=== PATIENT | female | born 1990 | race Caucasian/White ===

== ENCOUNTER 2025-01-17 12:51 | Outpatient (CLI) | payer OTHER, SELFPAY ==
--- OUTSIDE RECORDS SUMMARY | 2025-01-17 12:54 | XMS_ITS | Clinical Summary ---
Author Organization [facility] Address [address] [place] [address] Phone Care Team Providers Care Virtualization Engineer Name Role Phone Unavailable Primary Care Provider Unavailabl e Allergies Active Allergy Reactions Criticality Noted Date Comments Sulfa Antibiotics Rash 10/20/2015 Medications LORazepam (ATIVAN) 0.5 MG Tablet Take 0.5 mg by mouth every 6 hours as needed for Anxiety. Active Levonorgestrel-Eth inyl Estrad (ASHLI, Kevin,) 0.15-30 MG-MCG TabletIndications: Encounter for surveillance of contraceptive pills Take 1 Tab by mouth daily. 90 Tab 4 6 Active citalopram (CELEXA) 10 MG TabletIndications: Anxiety Take 1 Tab by mouth daily. 90 Tab 3 6 Active Active Problems Problem Noted Date Diagnosed Date Anxiety Intertrigo Contraceptive management Orthostatic hypotension Irregular menses Allergic rhinitis Family History Medical History Relation Name Comments Hypertension Father Breast Cancer Maternal Grandmother Relation Name Status Comments Father Maternal Grandmother Social History Tobacco Use Types Packs/Day Years Used Date Smoking Tobacco: Never Alcohol Use Standard Drinks/Week Comments Not Asked 0 (1 standard drink = 0.6 oz pur e alcohol) Sexually Active Control Partners Comments Yes Male Comments Unknown Sex and Gender Information Value Date Recorded Sex Assigned at Not on file Legal Sex Female 3:23 AM CDT Gender Identity Not on file Sexual Orientation Not on file Last Filed Vital Signs Vital Sign Reading Time Taken Comments Blood Pressure 102/56 10/20/2015 8:22 AM CDT Pulse 87 10/20/2015 8:22 AM CDT Temperature - - Respiratory Rate - - Oxygen Saturation - - Inhaled Oxygen Concentration - - Weight 56.5 kg (124 lb 9.6 oz) 10/20/2015 8:22 A M CDT Height 171.5 cm (5' 7.5) 10/20/2015 8:22 AM CDT Body Mass Index 19.23 10/20/2015 8:22 AM CDT Plan of Treatment Health Maintenance Due Date Last Done Comments Hepatitis C Virus (HCV) Screening 1992 TdaP Immunization 1992 Hepatitis B Immunization (1 of 3 - 19+ 3-dose series) 2011 Pap Smear 2013 Cervical Cancer Screening (CCS) 2022 HPV/Cotest 2022 Influenza Immunization (#1) 2024 SARS-COV-2 Immunization ( season) 2024 Respiratory Syncytial Virus (RSV) Immunization (Adult) (1 - 1-dose 75+ series) 2067 Meningococcal Immunization (ACWY) Aged Out No longer eligible based on patient's age to complete this topic Pneumococcal Immunization Combined Aged Out No longer eligible based on patient's age to complete this topic Rotavirus Immunization Aged Out No lo nger eligible based on patient's age to complete this topic Insurance [employer]
[2025-01-17 13:38] LABS: Magnesium 1.8 mg/dL (1.6-2.3)
[2025-01-17 13:46] LABS: Iron 92 ug/dL (37-170)
[2025-01-17 14:04] LABS: Percent Iron Saturation 25 % (20-50)
[2025-01-17 14:47] LABS: Folic Acid > 20.0 ng/mL (2.76->20)
[2025-01-17 15:00] LABS: Vitamin D 25 Hydroxy 26.8 ng/mL
== END 2025-01-17 12:52 | disposition home or self-care (01) ==
PROVIDERS: PCP Nurse Practitioner Family; Visit Provider Nurse Practitioner Family
DX: E61.1 Iron deficiency (principal); Z13.29 Encounter for screening for other suspected endocrine disorder; R79.89 Other specified abnormal findings of blood chemistry; E55.9 Vitamin D deficiency, unspecified
CPT/HCPCS: 36415; 82306; 82607; 82728; 82746; 83540; 83550; 83735; 84443

== ENCOUNTER 2025-02-24 09:29 | Outpatient (CLI) | payer OTHER, SELFPAY ==
--- OUTSIDE RECORDS SUMMARY | 2025-02-24 09:34 | XMS_ITS | Clinical Summary ---
Author Organization [facility] Address [address] [place] [address] Phone Care Team Providers Care Vice President Business & Corporate Development Name Role Phone Unavailable Primary Care Provider [...] Virus (HCV) Screening 1992 TdaP Immunization 1992 Human Papillomavirus (HPV) Immunization (1 - 3-dose series) 2007 Hepatitis B Immunization (1 of 3 - 19+ 3-dose series) 2011 Pap Smear 2013 Cervical Cancer Screening (CCS) 2022 HPV/Cotest 2022 SARS-COV-2 Immunization ( - season) 2024 Influenza Immunization (#1) 2025 Respiratory Syncytial Virus (RSV) Immunization (Adult) (1 [...]
--- OUTSIDE RECORDS SUMMARY | 2025-02-24 09:34 | XMS_ITS | Clinical Summary ---
Author Organization [facility] Address [address] [place] [id number] Care Team Providers Care [id number] Consultant Name Role Phone Jarek Cordero DO Primary Care Provider [phone] Allergies Active Allergy Reactions Criticality Noted Date Comments Sulfasalazine Unknown 07/24/2019 Medications ferrous sulfate EC 324 (65 Fe) MG tablet Take 1 tablet (324 mg total) by mouth daily with breakfast. Active vitamin, low iron, ( VITAMIN WITH IRON) 27-0.8 MG tablet Take 1 tablet by mouth daily. Active citalopram 20 MG tablet Take 1 tablet (20 mg total) by mouth daily. Active busPIRone 10 MG tablet Take 1 tablet (10 mg total) by mouth 2 (two) times daily. Active docusate sodium 100 MG capsule Take 1 capsule (100 mg total) by mouth nightly. Active Blood Pressure KitIndications:Ge stational hypertension ([facility]) 1 kit by Does not apply route 2 (two) times a day. 1 kit 4 Active Active Problems Problem Noted Date Diagnosed Date ([facility]) 02/28/2024 Uterine contractions during ([facility]) 09/02/2019 39 weeks gestation of ([facility]) 2019 Family History Relation Status Comments Father Alive Mother Alive Social History Tobacco Use Types Packs/Day Years Used Date Smoking Tobacco: Never Smokeless Tobacco: Never Alcohol Use Standard Drinks/Week Comments No 0 (1 standard drink = 0.6 oz pur e alcohol) AUDIT-C Answer Date Recorded Frequency of Alcohol Consumption Never 07/24/2019 Average Number of Drinks Not on file 019 Frequency of Binge Drinking Not on file 07/07 Depression Answer Date Recor ded Last EPDS Total Score 3 03/01/2024 Last EPDS Self Harm Result Often 03/01 Comments No Sex and Gender Information Value Date Recorded Sex Assigned at Female 07/13/2021 6:05 PM CEMENTER 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 Legal Sex Female 11:13 AM CEMENTER 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 Gender Identity Female 07/13/2021 6:05 PM CEMENTER 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 Sexual Orientation Straight 07/13/2021 6: 05 PM CEMENTER 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 Last Filed Vital Signs Vital Sign Reading Time Taken Comments Blood Pressure 127/75 03/01/2024 9:28 AM CDT Pulse 100 03/01/2024 9:28 AM CDT Temperature 36.3 C (97.3 F) 03/01/2024 9:28 AM CDT Respiratory Rate 20 03/01/2024 9:30 AM CDT Oxygen Saturation 99% 03/01/2024 9:29 AM CDT Inhaled Oxygen Concentration - - Weight 70.3 kg (155 lb) 02/27/2024 9:00 PM CDT Height 170.2 cm (5' 7) 02/27/2024 9:00 PM CDT Body Mass Index 24.28 02/27/2024 9:00 PM CDT Plan of Treatment Health Maintenance Due Date Last Done Comments Cervical Cancer Screening Pap Smear (Age 30 to 64) Every 3 Years 1992 Annual Physical 1995 HPV Vaccines (3 - 3-dose series) 12/24/2007 10/01/2007, 07/26/2007, 06/02/2007 Hepatitis C 2010 Cervical Cancer Screening Pap with HPV Testing (Age 30 to 64) Every 5 Years 2022 Cervical Cancer Screening with HPV 2022 COVID-19 Vaccine ( season) 2024 04/23/2021, 04/02/2021 DTaP, Tdap and Td Vaccines (11 - Td or Tdap) 04/23/2031 04/23/2021, 06/14/2019, 11/02/2015, Additional history exists Hepatitis B Vaccines Completed 1992, 1992, 1992 Meningococcal Vaccine Completed 02/19/2010 Meningococcal B Vaccine Aged Out No l onger eligible based on patient's age to complete this topic Pneumococcal Vaccine: Pediatrics (0 to 5 Years) and At-Risk Patients (6 to 49 Years) Aged Out No longer eligible based on patient's age to complete this topic RSV Immunizations Under 20 Months Aged Out No longer eligible based on patient's age to complete this topic Insurance [employer] Advance Directives Documents on File Type Date Recorded 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
--- NOTE | 2025-02-24 11:00 | NEURO_ITS ---
Impression: # Complains of numbness of left 4th and 5th finger. 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 ? # Left ulnar neuropathy across the elbow. ? # Normal needle/EMG exam. ? # Clinical correlation recommended. Nerve Conduction Studies ?Stim Site NR Peak (ms) P-T Amp (?V) Site1 Site2 Delta-P (ms) Dist (cm) David (m/s) Left Median Anti Sensory (2-3nd Digit) Wrist ? 2.8 81.5 Wrist 2-3nd Digit 2.8 14.0 50 Wrist ? 2.8 58.3 Wrist 2-3nd Digit 2.8 14.0 50 Right Median Anti Sensory (2-3nd Digit) Wrist ? 2.7 72.4 Wrist 2-3nd Digit 2.7 14.0 52 Wrist ? 2.7 60.3 Wrist 2-3nd Digit 2.7 14.0 52 Left Radial Anti Sensory (Base 1st Digit) Wrist ? 2.1 56.4 Wrist Base 1st Digit 2.1 0.0 Right Radial Anti Sensory (Base 1st Digit) Wrist ? 2.1 31.6 Wrist Base 1st Digit 2.1 0.0 Left Ulnar Anti Sensory (5th Digit) Wrist ? 2.4 85.7 Wrist 5th Digit 2.4 14.0 58 Right Ulnar Anti Sensory (5th Digit) Wrist ? 2.3 75.8 Wrist 5th Digit 2.3 14.0 61 ?Stim Site NR Onset (ms) O-P Amp (mV) Site1 Site2 Delta-0 (ms) Dist (cm) David (m/s) Left Median Motor (Abd Poll Brev) Wrist ? 2.7 8.3 Elbow Wrist 4.6 27.0 59 Elbow ? 7.3 11.1 Right Median Motor (Abd Poll Brev) Wrist ? 2.8 6.1 Elbow Wrist 4.9 29.0 59 Elbow ? 7.7 11.5 Left Ulnar Motor (Abd Dig Minimi) Wrist ? 2.4 11.7 A Elbow Wrist 5.5 28.0 51 A Elbow ? 7.9 10.8 B Elbow Wrist 3.9 22.0 56 B Elbow ? 6.3 9.4 Right Ulnar Motor (Abd Dig Minimi) Wrist ? 2.0 11.8 A Elbow Wrist 5.0 29.0 58 A Elbow ? 7.0 10.9 B Elbow Wrist 3.7 21.0 57 B Elbow ? 5.7 9.6 Electromyography ?Side Muscle Nerve Root Ins Act Fibs Amp Dur Recrt Comment Right 1stDorInt Ulnar C8-T1 Nml Nml Nml Nml Nml Right Ext Indicis Radial (Post Int) C7-8 Nml Nml Nml Nml Nml Right Ext Digitorum Radial (Post Int) C7-8 Nml Nml Nml Nml Nml Right BrachioRad Radial C5-6 Nml Nml Nml Nml Nml Right PronatorTeres Median C6-7 Nml Nml Nml Nml Nml Right Abd Poll Brev Median C8-T1 Nml Nml Nml Nml Nml Right ABD Dig Min Ulnar C8-T1 Nml Nml Nml Nml Nml Right FlexPolLong Median (Ant Int) C7-8 Nml Nml Nml Nml Nml Right Abd Poll Long Radial (Post Int) C7-8 Nml Nml Nml Nml Nml Left 1stDorInt Ulnar C8-T1 Nml Nml Nml Nml Nml Left Ext Indicis Radial (Post Int) C7-8 Nml Nml Nml Nml Nml Left Ext Digitorum Radial (Post Int) C7-8 Nml Nml Nml Nml Nml Left BrachioRad Radial C5-6 Nml Nml Nml Nml Nml Left PronatorTeres Median C6-7 Nml Nml Nml Nml Nml Left Abd Poll Brev Median C8-T1 Nml Nml Nml Nml Nml Left ABD Dig Min Ulnar C8-T1 Nml Nml Nml Nml Nml Left FlexPolLong Median (Ant Int) C7-8 Nml Nml Nml Nml Nml Left Abd Poll Long Radial (Post Int) C7-8 Nml Nml Nml Nml Nml
== END 2025-02-24 09:30 | disposition home or self-care (01) ==
PROVIDERS: PCP Nurse Practitioner Family; Visit Provider Nurse Practitioner Family
DX: G56.03 Carpal tunnel syndrome, bilateral upper limbs (principal); G56.22 Lesion of ulnar nerve, left upper limb
CPT/HCPCS: 95886; 95911

== ENCOUNTER 2025-04-11 13:30 | Outpatient (RCR) | payer OTHER, SELFPAY ==
--- NOTE | 2025-01-17 14:44 | OTOPEVAL1 ---
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 Pt. reports this increasing hand weakness and pain has disrupted to capacity to hold instruments while performing procedures at work, holding and opening water bottles, picking up and holding her son. 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 Pt. presents with positive Reverse Phalen's test in L hand and below average pinch strength bilaterally. Pt. reports of increasing numbness and tingling, with stabbing pain after prolonged periods of holding instruments for work and performing procedures, resulting in decreased functional strength and use of bilateral hands. Pt. will benefit from occupational therapy services including therapeutic exercises and activity, use of therapeutic modalities, and education for condition management and reduction. Plan of Care Interventions Therapeutic Exercise,Manual Therapy,Therapeutic Activities,Self-Care/Home Management,Check Out for Orthotic/Prosthetic OT Services Indicated Yes Treatment Frequency and 1x/wk for 5 weeks Duration These treatments will address the objective and functional deficits as defined above. The patient will be advanced safely and appropriately in order for the patient to progress towards his/her prior level of function. Additional exercises will be introduced and as well as a comprehensive home exercise program upon discharge, if needed, ?to ensure carryover of functional gains achieved in the clinic. This treatment plan has been reviewed and agreement upon by the patient.
--- NOTE | 2025-01-17 14:45 | OPREHPOC ---
Outpatient Therapy Plan of Care This is a Multidisciplinary Plan of Care that may contain components documented by all disciplines (PT, OT, and ST.) OT Problem 1 OT Problem #1 Knowledge Deficit OT Goal 1 Goal / Goal Update Pt. will demonstrate independence in HEP, reporting completion of assigned frequency 5/7 day s of the week Target Visit 5 OT Problem 2 OT Problem #2 Pain OT Goal 1 Goal / Goal Update Pt. will report decreased pain to < 2/10 pain 5/7 days per week Target Visit 5 OT Problem 3 OT Problem #3 Impaired Strength OT Goal 1 Goal / Goal Update Pt. will demonstrate increased hand strength as demonstrated by 2 lbs increase in pinch tests Target Visit 10
--- NOTE | 2025-01-17 15:21 | OTOPEVAL1 ---
Assessment and note entered by Isis Hernandez, OT Evaluation Information Assessment Status Evaluation Diagnosis carpal tunnel syndrome, bilateral limbs ICD-10 Condition Codes (OT) Pain in right hand M79.641,Pain in left hand M79. 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 Pt. reports this increasing hand weakness and pain has disrupted to capacity to hold instruments while performing procedures at work, holding and opening water bottles, picking up and holding her son. 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 Pt. presents with positive Reverse Phalen's test in L hand and below average pinch strength bilaterally. Pt. reports of increasing numbness and tingling, with stabbing pain after prolonged periods of holding instruments for work and performing procedures, resulting in decreased functional strength and use of bilateral hands. Pt. will benefit from occupational therapy services including therapeutic exercises and activity, use of therapeutic modalities, and education for condition management and reduction. Plan of Care Interventions Therapeutic Exercise,Manual Therapy,Therapeutic Activities,Self-Care/Home Management,Check Out for Orthotic/Prosthetic OT Services Indicated Yes Treatment Frequency and 1x/wk for 5 weeks Duration These treatments will address the objective and functional deficits as defined above. The patient will be advanced safely and appropriately in order for the patient to progress towards his/her prior level of function. Additional exercises will be introduced and as well as a comprehensive home exercise program upon discharge, if needed, ?to ensure carryover of functional gains achieved in the clinic. This treatment plan has been reviewed and agreement upon by the patient.
--- NOTE | 2025-04-04 16:10 | OTOPPROG ---
Assessment and note entered by Isis Hernandez, OT Evaluation Information Assessment Status Progress Diagnosis carpal tunnel syndrome, bilateral limbs ICD-10 Condition Codes (OT) Pain in right hand M79.641,Pain in left hand M79. 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 Pt. reports increased pain with work as dentist, as she is required to frequent writs movement with applied force with tools which this week has been a 4/10 pain, in previous weeks has been alleviated. Pt. reports she no longer caries her toddler son as he is ambulatory. No pain, numbness of tingling in L wrist. Pt. has been attempting to rest use of wrist this week since return of pain in R wrist and hand, stating she cannot peanut picker her waterbottle and has to take increased time to do tasks to avoid pain. 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 Pt. 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 Pt. reports of reduction of numbness and tingling, no longer experiencing stabbing pain after prolonged periods of holding instruments for work and performing procedures, but increased pain with certain tasks and repetitive movement of wrist and hands. Pt. will benefit from continued occupational therapy services including therapeutic exercises and activity, use of therapeutic modalities, and education for condition management and reduction of symptoms. Plan of Care Interventions Therapeutic Exercise,Manual Therapy,Therapeutic Activities,Self-Care/Home Management,Check Out for Orthotic/Prosthetic OT Services Indicated Yes Treatment Frequency and 1x/wk for 5 weeks, pt. unable to attend more due Duration to work schedule These treatments will address the objective and functional deficits as defined above. The patient will be advanced safely and appropriately in order for the patient to progress towards his/her prior level of function. Additional exercises will be introduced and as well as a comprehensive home exercise program upon discharge, if needed, ?to ensure carryover of functional gains achieved in the clinic. This treatment plan has been reviewed and agreement upon by the patient.
--- NOTE | 2025-04-04 16:10 | OPREHPOC ---
Outpatient Therapy Plan of Care This is a Multidisciplinary Plan of Care that may contain components documented by all disciplines (PT, OT, and ST.) OT Problem 1 OT Problem #1 Knowledge Deficit OT Goal 1 Goal / Goal Update Pt. will demonstrate independence in HEP, reporting completion of assigned frequency 5/7 days of the week --Progress 04/04/25-- 1) Goal met, continue for advancing HEP Target Visit 10 Progress Met OT Problem 2 OT Problem #2 Pain OT Goal 1 Goal / Goal Update Pt. will report decreased pain to < 2/10 pain 5/7 days per week --Progress 04/04/25-- 1) Goal partially met, pt. reports overall pain reduction of <1/10 on most days of the week, but has experience exacerbation symptoms with increased activity Updated goal: Pt. will report decreased pain to < 1/10 pain 5/7 days per week without exacerbation of symptoms Target Visit 10 Progress Partially Met OT Problem 3 OT Problem #3 Impaired Strength OT Goal 1 Goal / Goal Update Pt. will demonstrate increased hand strength as demonstrated by 2 lbs increase in pinch tests --Progress 04/04/25-- Goal met, Update Update: Pt. will demonstrate increased hand strength as demonstrated by increased of lateral and gregorio pinch test to > 13 lbs bilaterally Target Visit 10 Progress Met
== END 2025-04-17 23:59 | disposition home or self-care (01) ==
LOC: ANHOT 13:30
PROVIDERS: PCP Nurse Practitioner Family; Visit Provider Nurse Practitioner Family
DX: G56.03 Carpal tunnel syndrome, bilateral upper limbs (principal)
CPT/HCPCS: 97018; 97110; 97112; 97165

== ENCOUNTER 2025-04-25 10:15 | Outpatient (RCR) | payer OTHER, SELFPAY ==
--- NOTE | 2025-04-18 13:32 | PCOTNOTE ---
Pt. scheduled for 13:30 appointment. Contacted through portal regarding cancelation of appointment today due to Emergency.
--- NOTE | 2025-05-09 16:56 | OTOPDC ---
Assessment and note entered by Isis Hernandez, OT Evaluation Information Assessment Status Discharge Diagnosis carpal tunnel syndrome, bilateral limbs ICD-10 Condition Codes (OT) Pain in right hand M79.641,Pain in left hand M79. 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 Pt. 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 Pt reports she no longer caries her toddler son, as he is ambulatory, and states that she thinks that is why her L hand is experiencing less pain. Pt. 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 Pt. presents for revaluation with reduced overall symptoms including negative Phalen's test bilaterally, with report of decreased occurrences of pain and no additional numbness or tingling during prolonged periods of activity. Pt. displays consistent average, gross poultry inspector strength, and consistently slightly below average pinch strengths bilaterally. Pt. educated on benefits of continued exercise plan focused on overall strength, postural exercises, and awareness of positioning during work related tasks which are likely to exacerbate and return symptoms. Pt. issued updated HEP and putty for continued maintenance program at home. Pt. in agreement to discharge on this date. Plan of Care OT Services Indicated No
== END 2025-07-24 23:59 | disposition home or self-care (01) ==
LOC: ANHOT 10:15
PROVIDERS: PCP Nurse Practitioner Family; Visit Provider Nurse Practitioner Family
DX: G56.03 Carpal tunnel syndrome, bilateral upper limbs (principal)
CPT/HCPCS: 97018; 97110